=== PATIENT | female | born 1990 | race Caucasian/White ===

== ENCOUNTER 2017-07-21 02:55 | Emergency (ER) | payer OTHER ==
[~2017-07-21] VITALS: Ht 167.6 cm; Wt 113.0 kg
[2017-07-21 03:02] VITALS: TEMP 37.1; Ht 167.6 cm; Wt 113.0 kg
[2017-07-21] MEDS ORDERED: TOPI25TA99 PO (04:18)
--- NOTE | 2017-07-21 04:52 | EMERGENCY ROOM VISIT NOTE ---
History First contact with patient: 03:03 Chief Complaint: ARM PAIN Stated Complaint: ARM PAIN,RIGHT History of Present Illness The patient is a 27 year old female who presents to the Emergency Room with complaints of pain and swelling in the right hand for the past day who was casted a few days ago for a wrist fracture and [place]. Patient states she took the cast off herself today because of the pain and swelling. Patient tried to get a hold of her orthopedic surgeon but was unable to see her today. 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 Patient comes in now for treatment for that wrist as she took the cast off. Patient states the pain and swelling and tingling are improving. Patient denies chest pain, dyspnea, numbness, discoloration to the hand, tobacco use, recent travel. No history of blood clots. Review of Systems A 6 system review of systems was completed with positives and pertinent negatives listed in the HPI. Past Medical/Surgical History Orthopedic injury Social History Smoking Status: Never Smoker Smokeless Tobacco Use: No Drug Use: none Current/Historical Medications Scheduled Topiramate (Topamax ), 1 TAB PO HS Physical Exam Vital Signs Date Time Temp Pulse Resp B/P (MAP) Pulse Ox O2 Delivery O2 Flow Rate FiO2 07/21/18 03:02 37.1 86 18 145/87 99 Room Air Physical Exam VITALS: Vitals are noted on the nurse's note and reviewed by myself. Vital signs stable. GENERAL: Pleasant female, in no acute distress, nondiaphoretic, well-developed well-nourished. SKIN: Capillary reflex less than 2 seconds. HEENT: Normocephalic. PERRLA. EOMI. Nares patent. Mucous membranes moist. HEART: Regular rate and rhythm without murmurs gallops or rubs. LUNGS: Clear to auscultation bilaterally without wheezes, rales or rhonchi. No retractions or accessory muscle use. MUSCULOSKELETAL: No gross musculoskeletal defects. Right distal radius and scaphoid tender to palpation. No obvious deformity. Increased pain with range of motion. Sensation is intact to the fingers of the right hand. No right forearm, hand or finger pain. Radial pulses +2 equal and present bilaterally. NEURO: Patient was alert and oriented to person place and time. Normal sensation to light and sharp touch. No focal neurological deficits. Medical Decision & Procedures ED Course Prior records reviewed and summarized above. Triage Nursing notes reviewed. Additional history obtained from the family. The patient's history was concerning for swelling and pain in the arm Differential diagnosis: Etiologies such as compartment syndrome, DVT, musculoskeletal, infection, joint effusion, trauma, lymphedema, as well as others were entertained.. Physical examination: The physical examination revealed no signs of infection. Neurovascularly intact. ER treatment provided: Patient was splinted and Ortho-Glass with thumb spica and neurovascular status was rechecked after placement and is intact. She is placed in a sling. Neurovascular status was rechecked after placement and is intact. She is advised to do range of motion exercises as not to develop a frozen shoulder. On reassessment the patient felt better. Diagnostics interpreted by me: Imaging studies: Right wrist x-ray with healing scaphoid fracture per my interpretation Ultrasound negative for DVT This appears to be consistent with wrist fracture. Patient removed her cast secondary to the pain and swelling. Patient was neurovascularly and neurologically intact. She was then splinted and placed in a sling. She had no DVT. She is advised to follow-up with her orthopedics when she returns from her mission trip or go to the nearest ER for any problems when she is in [facility]. She was advised to take Motrin for the pain and elevate the injury.. By the evaluation outlined above emergent etiologies such as DVT, septic joint, trauma, infection, as well as others were deemed relatively unlikely. The pt informed about the findings as listed above. All questions were answered and pleased with the treatment. Return instructions were outlined and the patient was discharged in stable condition. Case reviewed with my attending Referral: The patient was referred back to their orthopedics for follow-up in 2 to 3 days for a recheck of the current condition. The chart was completed utilizing [employer] Speech voice recognition software. Grammatical errors, random word insertions, pronoun errors, and incomplete sentences are an occassional consequence of this system due to software limitations, ambient noise, and hardware issues. Any formal questions or concerns about the content, text, or information contained within the body of this dictation should be directly addressed to the physician assistant federal public defender for clarification. Medical Decision As above [place] Drug Monitoring Program Search Results: patient reviewed within database, no issues identified Medication Reconcilliation Current Medication List: was personally reviewed by me Blood Pressure Screening Patient's blood pressure: Elevated blood pressure Blood pressure disposition: Elevated BP felt to be situational Impression Primary Impression: Right wrist fracture Departure Information Dispostion Home / Self-Care Condition GOOD Referrals No Doctor, Assigned (PCP) Patient Instructions My [facility] Additional Instructions Ibuprofen(Motrin, Advil) may be used for fever or pain. Use 600mg every six hours as needed. Take with food. Avoid using more than 2400mg in a 24 hour period. Do not use 2400mg per day for more than three consecutive days without physician direction. Prolonged inappropriate use can lead to stomach upset or ulcers. This medication can be taken if you need to drive, work, or perform activities which may be dangerous when taking narcotic pain medication. (AND/OR) Acetaminophen(Tylenol) may be used for fever or pain. Use 1000mg every six hours as needed. Avoid using more than 3000mg in a 24 hour period. This medication can be taken if you need to drive, work, or perform activities which may be dangerous when taking narcotic pain medication. Ice compresses for 20 minutes at a time four times daily for 2-3 days. Use the sling as instructed. Remove your arm from the sling 4-6 times a day and move all the joints around to keep them loose. Rest and elevate your injury. Do not get the splint wet. If your splint feels excessively tight, you have worsening pain, develop numbness or tingling, or your digits appear blue, loosen the margaret wrap. Then reapply the margaret wrap gently without removing the splint. If your symptoms are not quickly relieved return to the ER for re- evaluation. Continue current medications. Return to the ER immediately for any numbness, tingling, severe pain, extreme swelling in the extremity or as needed. Call your Orthopedics tomorrow to arrange follow up for your injury. Problem Qualifiers Primary Impression: Right wrist fracture Encounter type: initial encounter Fracture type: closed Qualified Codes: S62.101A - Fracture of unspecified carpal bone, right wrist, initial encounter for closed fracture
[2017-07-21 05:08] VITALS: BP 136/94; PULSE 78; O2SAT 97
--- NOTE | 2017-07-21 08:35 | DIAGNOSTIC IMAGING REPORT ---
RIGHT UPPER EXTREMITY VENOUS DOPPLER ULTRASOUND CLINICAL HISTORY: Right arm swelling. Recent fracture. COMPARISON STUDY: No previous studies for comparison. FINDINGS: The right internal jugular, subclavian, axillary, brachial, basilic, radial and ulnar veins are patent. No venous thrombus is identified within the right upper extremity. IMPRESSION: No deep venous thrombus within the right upper extremity. Electronically signed by: Robert Pillai M.D. 07/21/2017 8:34 AM Dictated Date/Time: 07/21/2017 8:33 AM
--- NOTE | 2017-07-21 08:40 | DIAGNOSTIC IMAGING REPORT ---
R WRIST W/NAVICULAR MIN 3 VIEWS CLINICAL HISTORY: Right wrist pain following fall. COMPARISON: None FINDINGS: There is subtle lucency within the scaphoid waist shown on oblique projection. No definite fracture is identified. This is equivocal for nondisplaced scaphoid fracture. There is minimal osteophytosis of the radiocarpal articulation. IMPRESSION: Subtle lucency within the scaphoid waist. Artifact is favored however a nondisplaced scaphoid fracture could appear similar. If persistent pain, an MRI could be obtained. Electronically signed by: Robert Pillai M.D. 07/21/2017 8:38 AM Dictated Date/Time: 07/21/2017 8:34 AM
== END 2017-07-21 05:09 | disposition home or self-care (01) ==
LOC: C.EDB 02:58
DX: S62.101A Fracture of unspecified carpal bone, right wrist, initial encounter for closed fracture (principal); W19.XXXA Unspecified fall, initial encounter; Y92.9 Unspecified place or not applicable

== ENCOUNTER 2021-01-10 05:33 | Observation (INO) ==
--- NOTE | 2021-01-04 10:03 | Anesthesiology Consultation ---
Date of Service January 04, 2021 Assessment & Plan (1) Encounter for pre-operative examination: Chart Review Chart Review: Acceptable Risk for Surgery (pending preop Covid testing results ) and Patient NOT seen in Pre Admission Testing -Will leave to anesthesiologist discretion DOS if EKG needed (pt with hx of occ palpitations) Per nursing assessment 01/03/2021, patient denies any recent travel. Patient is not vaccinated for Covid. No known Covid infection in the past 90 days. No known Covid positive contacts or Covid related symptoms. Pt's father is tested routinely for Covid at work (works at [employer]). Preop Covid testing scheduled 01/06/21= will await results History Surgery Operation Date: 01/10/21 11:30 Proposed Procedures p Bilateral Breast Reduction - Lyndsay Morgan MD Height/Weight Height: 5 ft 6 in Weight: 101.151 kg Allergies Allergy/AdvReac Type Severity Reaction Status Date / Time bee venom protein (honey bee) Allergy Severe tongue and Verified 01/03/21 15:00 throat swelling coconut Allergy Severe tongue and Verified 01/03/21 15:00 throat swelling eletriptan Allergy Severe tongue and Verified 01/03/21 15:00 throat swelling adhesive tape AdvReac Mild skin Verified 01/03/21 15:00 irritation Medications Home Medications Medication Instructions Recorded Confirmed Last Taken furosemide 20 mg tablet (Lasix) 20 mg PO QAM PRN 10/21/20 01/03/21 Unknown sumatriptan succinate 25 mg tablet 25 mg PO Q2H PRN 10/21/20 01/03/21 Unknown (Imitrex) zolpidem 10 mg tablet (Ambien) 10 mg PO HS 10/21/20 01/03/21 Unknown oxycodone-acetaminophen 5 mg-325 1 tab PO Q4H PRN #18 tab 12/21/20 12/21/20 Unknown mg tablet (Endocet) Estrogen Gel 1 dose VAGINAL UD 01/03/21 01/03/21 Unknown cyclobenzaprine 10 mg tablet 10 mg PO BID PRN 01/03/21 01/03/21 Unknown gabapentin 300 mg tablet 300 mg PO TID 01/03/21 01/03/21 Unknown topiramate 50 mg tablet (Topamax) 100 mg PO BID 01/03/21 01/03/21 Unknown Past Medical History Medical History (Updated 01/04/21 @ 10:00 by Sri Guaman PA-C) Attention deficit disorder (ADD) Degenerative disc disease Edema of both lower extremities PRN LASIX Heart palpitations OCC. (HOLTOR MONITOR DONE WITH CARDS IN THE PAST 5+ YEARS AGO) Per 11/03/20 PCP note - (aware of upcoming breast reduction)- "no cardiac history.. EKG as needed" History of anxiety History of depression Hx gestational diabetes Migraine Post traumatic stress disorder Seasonal asthma NO USE OF INHALER AT PRESENT TIME Past Family History Family History (Updated 01/03/21 @ 15:10 by Alyssa Soto, MABLE) Aunt Breast cancer Grandmother (Maternal) Breast cancer Other Adopted Past Surgical History Surgical History (Updated 01/03/21 @ 15:15 by Alyssa Soto RN) History of section X 1 History of dilatation and curettage History of gynecologic surgery ESSURE PROCEDURE History of hysterectomy History of myringotomy Nausea and vomiting after administration of anesthetic agent [place] teeth removed Social History Smoking Status: Never smoker Hx Alcohol Use: Yes alcohol intake frequency: holidays/special occasions only Hx Substance Use: No substance use type: does not use Lab Results Anesthesia Preop Results Results Anesthesia Widget: WBC 6.89 K/uL (4.8-10.8) 12/21/20 Hgb 13.1 g/dL (12.0-16.0) 12/21/20 Hct 38.7 % (37-47) 12/21/20 Plt 176 K/uL (130-400) 12/21/20 Na 139 mmol/L (136-145) 12/21/20 K 3.9 mmol/L (3.5-5.1) 12/21/20 Cl 109 mmol/L (98-107) H 12/21/20 CO2 28 mmol/L (21-32) 12/21/20 BUN 11 mg/dl (7-18) 12/21/20 Creat 0.61 mg/dl (0.6-1.2) 12/21/20 Glucose Level 83 mg/dl (70-99) 12/21/20 PT 10.1 Seconds (9.0-12.0) 12/21/20 PTT 26.6 Seconds (21.0-31.0) 12/21/20 INR 1.0 (0.9-1.1) 12/21/20
[2021-01-10] MEDS ORDERED: LR 15ML/HR IV SCH (06:00)
[2021-01-10] MEDS ORDERED: ceFAZolin 2000MG 2,000 MG/15 ML SYR IV SCH ×2 (06:00→16:00)
--- NOTE | 2021-01-10 06:57 | History & Physical Bridge Note ---
Date of Service January 10, 2021 History & Physical Bridge Note I have examined the patient, reviewed the History & Physical and in the interval since the performance of the History & Physical I have noted the following changes of clinical significance: no changes noted
[2021-01-10] MEDS ORDERED: ATROPINE SULFATE 0.1 MG/ML 10ML SYR IV PRN (07:01)
[2021-01-10] MEDS ORDERED: HYDROmorphone INJ 2 MG/ML SYR/VIAL IV PRN (07:01)
[2021-01-10] MEDS ORDERED: fentaNYL citrate 100 MCG/2 ML VIAL IV PRN (07:01)
[2021-01-10] MEDS ORDERED: PROMETHAZINE HCL 12.5 MG in SODIUM CHLORIDE 0.9% 50 ML IV PRN (07:01)
[2021-01-10] MEDS ORDERED: ePHEDrine sulfate 50 MG/ML AMP IV PRN (07:01)
[2021-01-10] MEDS ORDERED: ONDANSETRON INJ 2 MG/ML 2 ML VIAL IV PRN (07:01)
[2021-01-10] MEDS ORDERED: SCOPOLAMINE 1 MG TDSY TD ONE (07:01)
[2021-01-10] MEDS ORDERED: MIDAZOLAM HCL 1 MG/ML 2ML VIAL ONE (07:02)
[2021-01-10] MEDS ORDERED: fentaNYL citrate 100 MCG/2 ML VIAL ONE ×2 (07:02→08:35)
[2021-01-10] MEDS ORDERED: ACETAMINOPHEN 1000 MG/100 ML IV IV ONE (07:08)
[2021-01-10] MEDS ORDERED: FAMOTIDINE/PF 20 MG/2 ML VIAL IV ONE (07:09)
[2021-01-10] MEDS ORDERED: BUPIVACAINE 0.25% 30 ML VIAL ONE (07:24)
[2021-01-10] MEDS ORDERED: GENTAMICIN SULFATE 40 MG/ML 2 ML VIAL ONE (07:24)
[2021-01-10] MEDS ORDERED: LIDOCAINE/EPINEPHRINE 1% 20 ML VIAL ONE (07:24)
[2021-01-10] MEDS ORDERED: KETAMINE 50 MG/5 ML SYRINGE ONE (07:51)
[2021-01-10] MEDS ORDERED: HYDROmorphone INJ 1 MG/ML SYRINGE ONE ×2 (07:51→08:33)
[2021-01-10] MEDS ORDERED: ONDANSETRON INJ 2 MG/ML 2 ML VIAL ONE (08:34)
[2021-01-10] MEDS ORDERED: DEXAMETHASONE SOD INJ 4 MG/ML VIAL ONE (08:34)
[2021-01-10] MEDS ORDERED: LIDOCAINE 2% 2 ML VIAL/AMP(20MG/ML) INFIL ONE (08:34)
[2021-01-10] MEDS ORDERED: PROPOFOL IV EMULSION 10 MG/ML 20 ML VIAL IV ONE (08:34)
[2021-01-10] MEDS ORDERED: TISSEEL FIBRIN SEALANT 10ML TOP ONE (11:07)
--- NOTE | 2021-01-10 11:53 | Post Operative Brief Note ---
PG Immediate Post Op with CF Date of Surgery January 10, 2021 Pre & Post Diagnosis Operation Date: 01/10/21 07:30 Pre-Op Diagnosis: Bilateral Symptomatic Macromastia Post-Op Diagnosis: Bilateral Symptomatic Macromastia I identified the patient and participated in the time-out.: Yes Procedure Operation Date: 01/10/21 07:30 Actual Procedures p Bilateral Breast Reduction(Bilateral) - Lyndsay Morgan MD Surgeon Lyndsay Morgan MD Correctional Program Specialist Aleisha Hdez PA-C Estimated Blood Loss 75 Findings Consistent with Post-Op Diagnosis Specimens Specimen Description: A. Right Breast Tissue - 978g B.) Left Breast Tissue - 766 grams Drains Bryan-Umanzor Drain (x2)
--- NOTE | 2021-01-10 12:17 | Operative Report ---
PG Post Operative Report Pre & Post Diagnosis Operation Date: 01/10/21 07:30 Pre-Op Diagnosis: Bilateral Symptomatic Macromastia Post-Op Diagnosis: Bilateral Symptomatic Macromastia I identified the patient and participated in the time-out.: Yes Procedure Operation Date: 01/10/21 07:30 Actual Procedures p Bilateral Breast Reduction(Bilateral) - Lyndsay Morgan MD Surgeon Lyndsay Morgan MD Undercoat Sprayer Aleisha Hdez PA-C Estimated Blood Loss 75 Findings Consistent with Post-Op Diagnosis Specimens left breast tissue 766 grams, right breast tissue 978 grams Drains JPx2 Complications none Indications back, neck and bilateral shoulder pain, intertrigo secondary to macromastia Description of Procedure The risks, benefits, and alternatives of the procedure were explained to the pat ient who agreed and signed consent. She was identified and marked in the preoperative holding area. We discussed extending the incision out toward the lateral chest wall in order to minimize dogear formation. She was brought to the operating room where she was positioned supine and placed under general anesthesia without incident. Nipple piercings were removed. Surgical site was prepped and draped sterilely. A time-out procedure was performed. I began with the right side as it was larger. Markings were reassessed and an 8 cm pedicle was marked. 1% lidocaine with epinephrine was used to anesthetize the planned incisions. A 42 mm cookie cutter was used to circumscribe the nipple-areolar complex. The previously marked 8 cm pedicle was incised using a 15 blade scalpel and deepithelialized. I began with the medial dissection of the pedicle using electrocautery. Cautery was used to incise through dermis and breast parenchyma down to the chest wall, taking care not to undermine the pedicle during dissection. A similar procedure was undertaken on the lateral aspect of the pedicle again taking care not to undermine. Lastly, the pedicle was dissected out superiorly using electrocautery and this was carried down to the chest wall as well. I then began with excision of the medial breast tissue followed by lateral aspect of the breast tissue and surrounding keyhole incision. A 15 blade scalpel was used to make the inframammary fold incision and electrocautery was used to deepen the incision through dermis and breast parenchyma. Dissection was then carried superiorly to the level of the superior incision. Superior incision was then incised using a 15 blade scalpel and again dissected using electrocautery. This was undertaken laterally and then around the keyhole portion of the incision. Care was taken to leave some fat on the lateral pectoralis fascia in order to protect the T4 intercostal nerve. Hemostasis was achieved with electrocautery. The specimen was passed off in its entirety for weighing. Additional resection was undertaken from the superior flap in order to facilitate closure of the breast and to provide the best shape. The total resection weight of the right breast was 978 grams. The wound was irrigated with saline and hemostasis was achieved with electrocautery. 0.25% Marcaine plain was used to anesthetize the incisions as well as the pectoralis fascia. A 15 Croatian Shashi drain was brought out through a separate stab incision. The nipple-areolar complex was brought into the keyhole using 2-0 Vicryl deep dermal suture. The wound was closed first in a lateral to mid breast direction and then medial to mid breast direction using 2-0 Vicryl deep dermal sutures. Vertical limb was also approximated using 2-0 Vicryl deep dermals and the nipple-areolar complex was inset using 2-0 Vicryl deep dermal sutures. Next, the superficial dermal layer was closed using 2-0 PDO running Quill suture along the inframammary fold and 3-0 PDS interrupted dermal sutures along the vertical limb and nipple- areolar complex. Lastly 3-0 Monocryl running subcuticular suture was placed. A similar procedure was undertaken on the left side until symmetry was achieved with maximal excision weight of 766 grams. Breasts were symmetric and nipple-areolar complexes were viable bilaterally following wound closure. Dermabond Prineo was applied along the inframammary fold and vertical limb and Dermabond was placed around the nipple-areolar complex. Dry dressings and a surgical bra were placed. The patient was awakened and transferred to recovery room in satisfactory condition. Aleisha Hdez PA-C was present and scrubbed throughout the procedure and was instrumental in providing retraction during dissection of the pedicle and assisting in wound closure. I attest to the content of the Intraoperative Record and any orders documented therein. Any exceptions are noted below.
--- NOTE | 2021-01-10 13:21 | Anesthesiology Progress Note ---
Date of Service January 10, 2021 Anesthesia Post Procedure Vital Signs Vital Signs: Temp Pulse Resp BP Pulse Ox 01/10/21 13:10 66 15 132/75 97 01/10/21 13:00 69 18 122/73 95 01/10/21 12:50 79 15 131/82 99 01/10/21 12:40 83 16 133/89 96 01/10/21 12:30 79 14 135/75 100 01/10/21 12:20 81 15 120/77 98 01/10/21 12:10 36.3 C L 76 18 118/71 97 01/10/21 06:08 37.2 C 89 18 133/59 L 97 Pain Intensity Bilateral Breast: Pain Intensity: 3 Transfer of Care Handoff Completed per policy Notes Mental Status: alert / awake / arousable and participated in evaluation Patient Amnestic to Procedure: Yes Nausea / Vomiting: adequately controlled Pain: adequately controlled Airway Patency, RR, SpO2: stable & adequate BP & HR: stable & adequate Hydration State: stable & adequate Anesthetic Complications: no major complications apparent and Pt Satisfied with anesthetic care
[2021-01-10] MEDS ORDERED: MoRPHine SULFATE 4 MG/ML 1 ML CARP\\VIAL IV PRN (15:23)
[2021-01-10] MEDS ORDERED: FUROSEMIDE 20 MG TAB PO PRN (15:23)
[2021-01-10] MEDS ORDERED: LORazepam 0.5 MG TAB PO PRN (15:23)
[2021-01-10] MEDS ORDERED: MoRPHine SULFATE 2 MG/ML CARP IV PRN (15:23)
[2021-01-10] MEDS ORDERED: oxyCODONE/ACETAMINOPHEN 5mg/325mg TAB PO PRN ×2 (15:23)
[2021-01-10] MEDS ORDERED: diphenhydrAMINE Capsule 25 MG CAP PO PRN (15:23)
[2021-01-10] MEDS ORDERED: diphenhydrAMINE 50 MG/ML VIAL IV PRN (15:23)
[2021-01-10] MEDS ORDERED: ACETAMINOPHEN 325 MG TAB PO PRN (15:23)
[2021-01-10] MEDS ORDERED: CHECK SCOPOLAMINE PATCH PLACEMENT SCH (16:00)
--- NOTE | 2021-01-10 16:49 | Surgery Progress Note ---
Date of Service January 10, 2021 Assessment & Plan (1) S/P bilateral breast reduction: Plan: D/C home now, follow-up in office tomorrow for drain removal. Admission and Anticipated Discharge Date Admission Date: January 10, 2021 Subjective Patient ambulating in hallway, tolerating regular diet. She reports good pain control and has successfully voided. Physical Exam Physical Exam: drains with appropriate output. nipples pink, sensate, viable Results & Data ([facility]) Vital Signs (Past 12 Hours) Vital Signs Temp Pulse Resp BP Pulse Ox 01/10/21 16:05 36.8 C 68 16 118/82 95 01/10/21 15:30 37.1 C 70 16 115/77 97 01/10/21 15:00 36.8 C 86 16 109/70 998 H 01/10/21 14:45 36.3 C L 78 19 117/77 96 01/10/21 14:15 75 17 123/70 96 01/10/21 14:05 79 15 113/73 97 01/10/21 13:50 74 19 127/73 98 01/10/21 13:35 68 17 127/78 97 01/10/21 13:20 68 15 124/73 98 01/10/21 13:10 66 15 132/75 97 01/10/21 13:00 69 18 122/73 95 01/10/21 12:50 79 15 131/82 99 01/10/21 12:40 83 16 133/89 96 01/10/21 12:30 79 14 135/75 100 01/10/21 12:20 81 15 120/77 98 01/10/21 12:10 36.3 C L 76 18 118/71 97 01/10/21 06:08 37.2 C 89 18 133/59 L 97 PG Care Time/CCT Total # of Minutes Spent Total Time Spent with Patient: Total time spent is greater than 50% in coordination of care (as documented) at patient's floor/unit and/or counseling patient: Coding Level of Care Code None Diagnoses S/P bilateral breast reduction Z98.890
[2021-01-10] MEDS ORDERED: ZOLPIDEM TARTRATE 10 MG TAB PO SCH (21:00)
[2021-01-10] MEDS ORDERED: TOPIRAMATE 100 MG TAB PO SCH (21:00)
[2021-01-11] MEDS ORDERED: MULTIVITAMIN TAB PO SCH (09:00)
--- NOTE | 2021-01-11 13:08 | Discharge Summary ---
Date of Service January 11, 2021 Admission HPI Per Admitting Provider see admission H&P Admission Exam Per Admitting Provider see admission H&P Principal Diagnosis symptomatic breast hypertrophy Discharge Exam dressings in place, nipples viable, drains with small amount serosang output VSS Discharge Data Allergies Allergy/AdvReac Type Severity Reaction Status Date / Time bee venom protein (honey bee) Allergy Severe tongue and Verified 01/10/21 06:06 throat swelling coconut Allergy Severe tongue and Verified 01/10/21 06:06 throat swelling eletriptan Allergy Severe tongue and Verified 01/10/21 06:06 throat swelling adhesive tape AdvReac Mild skin Verified 01/10/21 06:06 irritation Procedures Performed Operation Date: 01/10/21 07:30 Actual Procedures p Bilateral Breast Reduction(Bilateral) - Lyndsay Morgan MD Ordered Studies 01/10/21 05:00 US - OR guided needle placemen Routine Hospital Course (1) S/P bilateral breast reduction: Patient presented to [facility] with history of symptomatic macromastia. She was taken to the OR and underwent bilateral breast reduction. There were no intraoperative complications. She was taken to recovery and transferred to med/surg for observation. On POD#0, she was feeling well. She was tolerating a regular diet and ambulating. On exam, her vitals were stable. Her incisions were CDI and nipples viable. Her drains were removed. She was discharged home with instructions to follow-up in the office in one day. Total Time Total Time Spent Total Time Spent (In Minutes): 15 Total Time Includes: Examination of the Patient, Discharge Planning, Medication Reconciliation and Communication With Other Providers Discharge Plan Discharge Items Patient Disposition: Home - Self-Care Reason For Visit: Macromastia Discharge Diagnosis: s/p bilateral breast reduction Activity: As commented below Non-emergency contact: Surgeon Call non-emergency contact if: you have any medication questions, your pain is not controlled, you have a fever, your wound has increased redness and your wound has increased drainage Follow-up/Referrals: Aleisha Hdez PA-C [Physician Electrical And Instrument Engineer] - Stephen Ralph MD [Primary Care Provider] - Diet: Regular Addtl Attending Provider Instructions: ACTIVITY RECOMMENDATIONS: __Normal activities _x_No bending, lifting or straining. Keep arms at shoulder height or below __No driving __Driving allowed when you are off pain medications _x_Walking permitted __You should have help at home for ___ days DRESSINGS: __No dressings required _x_Keep dressings dry/in place until first office visit. OK to reinforce outer gauze dressing if needed __Remove dressings ___ and leave dressings off __Apply ice ___ days __Remove dressings and reapply garment __Apply antibiotic ointment (Bacitracin, Neosporin, etc) to wounds 3-4 times/day for 10 days BATHING: _x_Keep dressings dry __Sponge bathing permitted __Showering permitted _x_No swimming, hot tubs or soaking in a tub MEDICATIONS: Resume previous medications unless instructed otherwise by your surgeon. _x_Do not use aspirin, Motrin, Advil or Ibuprofen as these may promote bleeding. Please use Tylenol. _x_Prescription(s) provided: pain medication was provided at your last office visit OTHER INSTRUCTIONS: _x_Record drain output 2-3 times per day. Your drain is not sewn into place and may fall out, this is OK. SPECIAL CARE INSTRUCTIONS: * It is normal to have a mild fever after surgery. If your temperature is higher than 101.5 degrees F, please call the office at [phone]. * Constipation is a typical side effect of pain medication. An [id number] stool softener will help relieve this. * Leaking around surgical drains may occur and should not cause concern. Sometimes these drains become clogged. If this happens, remove the bulb and milk the clot out of the tube, then replace the bulb. * Drainage from wounds after liposuction is normal and should be expected. Garments will become soiled. You should protect furniture and bedding. This drainage should mostly subside within 2-3 days. Leave garments in place unless instructed to remove them. * If you have unusual drainage from a wound or are concerned you have an infection or have any questions or concerns, please call the office at [phone]. FOLLOW UP VISIT: If not already scheduled, please call the office, , when you return home after surgery to schedule an appointment to be seen in __1_ days. Pending Studies at Discharge: Yes Studies:: pathology Stand-Alone Forms: My [facility], Opioid Pain Management, Smoking Cessation Medications and DC Order Prescriptions: Continued zolpidem [Ambien] 10 mg tablet 10 mg PO HS RF: 0 sumatriptan succinate [Imitrex] 25 mg tablet 25 mg PO Q2H PRN (Reason: Migraine Headache) RF: 0 furosemide [Lasix] 20 mg tablet 20 mg PO QAM PRN (Reason: LOWER LEG EDEMA) RF: 0 oxycodone-acetaminophen [Endocet] 5-325 mg tablet 1 tab PO Q4H PRN (Reason: pain) Qty: 18 RF: 0 cyclobenzaprine 10 mg Tablet 10 mg PO BID PRN (Reason: Pain) RF: 0 topiramate [Topamax] 50 mg Tablet 100 mg PO BID RF: 0 gabapentin 300 mg Tablet 300 mg PO TID RF: 0 Estrogen Gel 1 dose vaginal UD RF: 0 Discharge Orders: Discharge Order (Routine); Ordered 01/10/21 Ordered By: Aleisha Hdez Admission Data Admit Date/Time: 01/10/21 12:15 Attending Provider: Lyndsay Morgan Admit Provider: Lyndsay Morgan Primary Care Provider: Stephen Ralph Other Interventions: Discharge Summary Assessment (RN) Last Done: 01/10/21 16:52 Coding Level of Care Code 43112 OBS Care - Discharge Diagnoses S/P bilateral breast reduction Z98.890
== END 2021-01-10 17:30 | disposition home or self-care (01) ==
LOC: PACUINP 05:33 → ASU 05:33 → 3E 15:07